=== PATIENT | male | born 1935 | race Caucasian/White ===

== ENCOUNTER 2018-06-16 11:00 | Observation (INO) | payer OTHER, BC ==
--- NOTE | 2018-06-16 11:15 | PDOC ---
Attending Attestation - Resident Resident Name: Kali Edwards - ED Attending Attestation I have performed the following: I have examined & evaluated the patient, The case was reviewed & discussed with the resident, I agree w/resident's findings & plan, Exceptions are as noted - HPI HPI: 06/16/18 11:16 82y M hx of htn, hl, aaa (being monitored) presents to the ED for unwitnessed fall from 2 days ago while working in the garden. The patient states he was feeling well prior, was cleaning his yard and felt 'darkening vision' then fell. He does not remember actually falling but states a bird bath had fallen over but does not recall hitting it. He was able to ambulate into the house and call his . Pt denies any prior headache, dizziness, palpitations, chest pain, sob, abd pain, back pain, neck pain, nubmness/tingling/weakness, vision changes, diarrhea, melena, bpr, fever/chills, cough. Pt doesnt recall if he had any LOC. PMD: Dr. Warren - Physicial Exam PE: 06/16/18 12:11 GENERAL: The patient is awake, alert, and fully oriented, Nontoxic - in no acute distress. HEAD: Normocephalic, atraumatic. EYES: extraocular movements intact, sclera anicteric, conjunctiva clear. ENT: Normal voice, Moist mucous membranes. NECK: Normal range of motion, supple LUNGS: Breath sounds equal, clear to auscultation bilaterally. No wheezes, no rhonchi, no rales. HEART: Regular rate and rhythm, normal S1 and S2 without murmur, rub or gallop. ABDOMEN: Soft, nontender No guarding, no rebound. . No CVA tenderness EXTREMITIES: Normal range of motion, no edema. NEUROLOGICAL: No facial assymetry, Normal speech, PSYCH: Normal mood, normal affect. SKIN: Warm, Dry, normal turgor, Back: No midline tenderness to the cervical, thoracic or lumbar spine Musculoskelatal: FROM of b/l shoulders, elbows, wrist. FROM of hips, knees, ankles - No signs of ecchymosis, erythema, or crepitus noted on palpation extremities, clavicals, ribs, back. On the R chets wall there is ecchynmosis and mild tenderness to right anterior chest approx level of 4th rib. - Medical Decision Making 06/16/18 12:58 concern for possibly syncope due to pt not recalling the fall labs reviewed - no signs of anemia,metabolic dernagemnt cxr/ct head/cspine negative for acute process pt currently on cardiac monitoring will dw hosptialist regarding observation Heart Score/ECG Review - ECG Impressions Comment:: 06/16/18 12:50 Twelve-lead EKG was performed and reviewed by me. There is normal sinus rhythm with a normal rate. rate of [address] wave changes
[2018-06-16 12:04] LABS: BASO % 0.5 % (0-2.0); EOS % 0.5 % (0-4.5); HEMATOCRIT 45.3 % (35.4-49); HEMOGLOBIN 14.9 GM/dl (11.7-16.9); LYMPH % 30.5 % (8-40); MCH 30.8 pg (25.7-33.7); MEAN CELL VOLUME 93.2 fl (80-96); MEAN PLT VOLUME 7.8 fl (7.5-11.1); MONO % 12.2 % (3.8-10.2); NEUT % 56.3 % (42.8-82.8); PLATELET COUNT 173 K/MM3 (134-434); RBC 4.85 M/mm3 (4.00-5.60); RDW 13.8 % (11.9-15.9); WHITE BLOOD COUNT 7.5 K/mm3 (4.0-10.8)
[2018-06-16 12:11] LABS: ACTIVATED PTT 28.1 SECONDS (25.2-36.5)
[2018-06-16 12:13] LABS: ALBUMIN 3.7 g/dl (3.4-5.0); ALK PHOS 38 U/L (45-117); ANION GAP 8 MMOL/L (8-16); BILIRUBIN,TOTAL 0.6 mg/dl (0.2-1); BLOOD UREA NITROGEN 13 mg/dl (7-18); CALCIUM 8.9 mg/dl (8.5-10); CHLORIDE 105 mmol/L (98-107); CO2 27 mmol/L (21-32); CREATININE 0.8 mg/dl (0.55-1.3); GLUCOSE,RANDOM 80 mg/dl (74-106); POTASSIUM 4.1 mmol/L (3.5-5.1); SGOT/AST 22 U/L (15-37); SGPT/ALT 16 U/L (13-61); SODIUM 140 mmol/L (136-145); TOT PROT 6.2 g/dl (6.4-8.2)
[2018-06-16 12:16] LABS: INR 1.06 (0.82-1.09); PROTHROMBIN TIME (PATIENT) 11.9 SEC (10.2-13.0)
--- NOTE | 2018-06-16 12:56 | PDOC ---
History of Present Illness <Cristian Alejandre - Last Filed: 06/16/18 13:33> - General History Source: Patient Exam Limitations: No Limitations - History of Present Illness Initial Comments: 06/16/18 12:52 82 yo male pmh HTN, HLD, AAA (stable 3.5 cm, last CT 1 year ago) No AC, presents to ED for unwitnessed fall. Pt states 23 days ago while working in the garden he noted darkened vision and found himself on the ground. Unknown time lapse in between fall and regaining consciousness. Pt was able to ambulate unassisted into his home and call his . Pt unsure if he hit his head, denies CP, palpitations or SOB prior to and after fall, denies BOO, changes in vision/speech, N/V/F/C, weakness on1 side of his body, confusion or changes in behaviour. Denies abdominal pain, blood in stool or urine, changes in bowel or bladder habits. Pt admits to pain on right ribs from 3-5 anterior axillary line to the sternum with bruising to area. <Kali Edwards - Last Filed: 06/16/18 15:19> - General Chief Complaint: Injury Stated Complaint: FELL Time Seen by Provider: 06/16/18 11:09 Past History <Cristian Alejandre - Last Filed: 06/16/18 13:33> - Past Medical History Cancer: Yes (BLADDER TUMORS) Cardiac Disorders: Yes (STABLE AAA) COPD: No GI Disorders: Yes (DIVERTICULOSIS) Disorders: Yes (RENAL CYSTS, ENLARGED PROSTATE) HTN: Yes Hypercholesterolemia: Yes Other medical history: RIGHT DELTOID CYST - Surgical History GI Surgery: Yes (POLYPECTOMIES) - Immunization History Immunization Up to Date: No - Suicide/Smoking/Psychosocial Hx Smoking History: Current every day smoker Have you smoked in the past 12 months: Yes Number of Cigarettes Smoked Daily: 7 Information on smoking cessation initiated: Yes 'Breaking Loose' booklet given: 06/23/15 Hx Alcohol Use: Yes Drug/Substance Use Hx: No Substance Use Type: None <Kali Edwards - Last Filed: 06/16/18 15:19> - Past Medical History Allergies/Adverse Reactions: Allergies Allergy/AdvReac Type Severity Reaction Status Date / Time No Known Allergies Allergy Verified 06/16/18 11:25 Home Medications: Ambulatory Orders Pravastatin Sodium [Pravachol (Nf)] 20 mg PO HS 06/23/15 Amlodipine Besylate [Norvasc -] 5 mg PO DAILY 06/16/18 Review of Systems - Review of Systems Constitutional: No: Chills, Fever HEENTM: No: Eye Pain, Blurred Vision, Double Vision Respiratory: No: Cough, Shortness of Breath Cardiac (ROS): Yes: Syncope, Other (right sided rib pain with bruising). No: Chest Pain, Lightheadedness, Palpitations ABD/GI: No: Abdominal Distended, Blood Streaked Bowels, Constipated, Diarrhea, Nausea, Vomiting, Tarry Stools : No: Burning, Dysuria, Discharge, Frequency, Flank Pain, Hematuria, Incontinence Musculoskeletal: No: Back Pain, Muscle Weakness, Neck Pain Integumentary: Yes: Bruising Neurological: No: Headache, Numbness, Paresthesia, Tingling, Tremors, Weakness, Unsteady Gait <Kali Edwards - Last Filed: 06/16/18 15:19> *Physical Exam - Vital Signs Last Vital Signs Temp Pulse Resp BP Pulse Ox 98.0 F 79 17 146/76 96 06/16/18 11:04 06/16/18 12:33 06/16/18 12:33 06/16/18 12:33 06/16/18 11:30 <Cristian Alejandre - Last Filed: 06/16/18 13:33> - Vital Signs Last Vital Signs Temp Pulse Resp BP Pulse Ox 98.0 F 79 17 146/76 96 06/16/18 11:04 06/16/18 12:33 06/16/18 12:33 06/16/18 12:33 06/16/18 11:30 - Physical Exam General Appearance: Yes: Nourished, Appropriately Dressed. No: Apparent Distress HEENT: positive: EOMI, GIRMA, Normal Voice, TMs Normal, Hearing Grossly Normal. negative: Pale Conjunctivae, Photophobia Neck: positive: Supple. negative: Tender, Decreased range of motion, Tender lateral Respiratory/Chest: positive: Lungs Clear, Normal Breath Sounds. negative: Accessory Muscle Use, Crackles, Rales, Rhonchi, Stridor, Wheezing Cardiovascular: positive: Regular Rhythm, Regular Rate, S1, S2. negative: Edema , JVD, Murmur Vascular Pulses: Dorsalis-Pedis (R): 4+, Doralis-Pedis (L): 4+ Gastrointestinal/Abdominal: positive: Flat, Soft. negative: Pulsatile Mass, Distended, Guarding, Rebound, Tenderness Musculoskeletal: positive: Normal Inspection. negative: CVA Tenderness Extremity: positive: Normal Capillary Refill, Normal Inspection, Normal Range of Motion, Other (abrasion to right dorsum hand and wrist). negative: Calf Tenderness Integumentary: positive: Bruising (from right ant ax line to right lateral sternum of ribs 3-5 ) Neurologic: positive: driver trainer II-XII NML intact, Fully Oriented, Alert, Normal Mood/ Affect, Normal Response, Motor Strength 5/5, Other (no pronator drift. ). negative: Facial Droop, Numbness, Sensory Deficit, Finger to Nose (normal), Confused, Disoriented <Kali Edwards - Last Filed: 06/16/18 15:19> ED Treatment Course - LABORATORY CBC & Chemistry Diagram: 06/16/18 11:45 06/16/18 11:45 - ADDITIONAL ORDERS Additional order review: Laboratory Results 06/16/18 06/16/18 06/16/18 11:45 11:45 11:45 PT with INR INR PTT (Actin FS) Sodium 140 Potassium 4.1 Chloride 105 Carbon Dioxide 27 Anion Gap 8 BUN 13 Creatinine 0.8 Creat Clearance w eGFR 92.32 Random Glucose 80 Calcium 8.9 Total Bilirubin 0.6 AST 22 ALT 16 Alkaline Phosphatase 38 L Creatine Kinase 100 Troponin I < 0.03 Total Protein 6.2 L Albumin 3.7 06/16/18 11:45 PT with INR 11.9 INR 1.06 PTT (Actin FS) 28.1 Sodium Potassium Chloride Carbon Dioxide Anion Gap BUN Creatinine Creat Clearance w eGFR Random Glucose Calcium Total Bilirubin AST ALT Alkaline Phosphatase Creatine Kinase Troponin I Total Protein Albumin 06/16/18 11:45 RBC 4.85 MCV 93.2 MCHC 33.0 RDW 13.8 MPV 7.8 Neutrophils % 56.3 Lymphocytes % 30.5 Monocytes % 12.2 H Eosinophils % 0.5 Basophils % 0.5 - RADIOLOGY Radiology Studies Ordered: Category Date Time Status WRIST W/HAND-RIGHT* [RAD] Stat Radiology 06/16/18 11:31 Taken <Cristian Alejandre - Last Filed: 06/16/18 13:33> - LABORATORY CBC & Chemistry Diagram: 06/16/18 11:45 06/16/18 11:45 - ADDITIONAL ORDERS Additional order review: Laboratory Results 06/16/18 06/16/18 06/16/18 11:45 11:45 11:45 PT with INR INR PTT (Actin FS) Sodium 140 Potassium 4.1 Chloride 105 Carbon Dioxide 27 Anion Gap 8 BUN 13 Creatinine 0.8 Creat Clearance w eGFR 92.32 Random Glucose 80 Calcium 8.9 Total Bilirubin 0.6 AST 22 ALT 16 Alkaline Phosphatase 38 L Creatine Kinase 100 Troponin I < 0.03 Total Protein 6.2 L Albumin 3.7 06/16/18 11:45 PT with INR 11.9 INR 1.06 PTT (Actin FS) 28.1 Sodium Potassium Chloride Carbon Dioxide Anion Gap BUN Creatinine Creat Clearance w eGFR Random Glucose Calcium Total Bilirubin AST ALT Alkaline Phosphatase Creatine Kinase Troponin I Total Protein Albumin 06/16/18 11:45 RBC 4.85 MCV 93.2 MCHC 33.0 RDW 13.8 MPV 7.8 Neutrophils % 56.3 Lymphocytes % 30.5 Monocytes % 12.2 H Eosinophils % 0.5 Basophils % 0.5 - RADIOLOGY Radiology Studies Ordered: Category Date Time Status CERVICAL SPINE CT W/O CONTR [CT] Stat CT Scan 06/16/18 11:[address] WITHOUT CONTRAST [CT] Stat CT Scan 06/16/18 11:25 Completed CHEST PA & LAT [RAD] Stat Radiology 06/16/18 11:24 Completed RIBS RIGHT SIDE [RAD] Stat Radiology 06/16/18 11:24 Completed <Kali Edwards - Last Filed: 06/16/18 15:19> Medical Decision Making - Medical Decision Making 82 yo male presents to ED with likely syncopal episode 2 days ago. Denies CP, palpitations, SOB or focal neuro deficits. Pt had similar episode approx 1 year ago, believes pt was seen at [facility] but no charts found. States pt had cardiac workup with echo approx 1 month ago reported as normal. Does not have Grain Handler however EKG NSR without ST elevations or depressions DDX INLT: Syncope and collapse from cardiac cause (arrhythmia vs ACS) vs neuro ( stroke vs seizure vs toxic/metabolic) vs infectious etiology Head and C spine CT neg for acute changes Chest x ray and rib series neg for acute path, fractures, pneumo Pt resting comfortably, NAD, non toxic appearing 06/16/18 13:[address] Sanchez who agrees to have pt admitted for syncope and collapse. Dr. Alejandre spoke with ESOL TEACHER Shukri regarding admission. Pt accepted <Kali Edwards - Last Filed: 06/16/18 15:19> *DC/Admit/Observation/Transfer - Discharge Dispostion Decision to Admit order: Yes <Cristian Alejandre - Last Filed: 06/16/18 13:33> <Kali Edwards - Last Filed: 06/16/18 15:19> Diagnosis at time of Disposition: Syncope Qualifiers: Syncope type: unspecified Qualified Code(s): R55 - Syncope and collapse Chest wall contusion Qualifiers: Encounter type: initial encounter Laterality: right Qualified Code(s): S20.211A - Contusion of right front wall of thorax, initial encounter - Discharge Dispostion Condition at time of disposition: Stable
--- NOTE | 2018-06-16 13:29 | HP ---
CHIEF COMPLAINT: Syncope PCP: Dr. Sanchez HISTORY OF PRESENT ILLNESS: 82 year-old male with a PMH significant for HTN, HLD, AAA, bladder cancer, presented to the ED today for an unwitnessed fall 2 days ago while working in his garden. His vision went "dark" and he found himself on the ground. He does not know if he hit anything but the bird feeder was knocked over. He was able to ambulate into his house and called his . He did not seek medical attention. Today he experienced worsening upper right rib pain and bruising so he came to the ED. ER course was notable for: (1) Troponin neg x 1 (2) ECG: SR; no acute ischemic changes (3) CT head negative for acute process Recent Travel: No PAST MEDICAL HISTORY: Hypertension Hyperlipidemia AAA (3.4cm, last CT one year ago) Bladder cancer PAST SURGICAL HISTORY: None Social History: Smoking: current everyday Alcohol: no Drugs: no Family History: Allergies No Known Allergies Allergy (Verified 06/16/18 11:25) HOME MEDICATIONS: Home Medications Medication Instructions Recorded Pravastatin Sodium [Pravachol (Nf)] 20 mg PO HS 06/23/15 Amlodipine Besylate [Norvasc -] 5 mg PO DAILY 06/16/18 REVIEW OF SYSTEMS CONSTITUTIONAL: Absent: fever, chills, diaphoresis, generalized weakness, malaise, loss of appetite, weight change HEENT: Absent: rhinorrhea, nasal congestion, throat pain, throat swelling, difficulty swallowing, mouth swelling, ear pain, eye pain, visual changes CARDIOVASCULAR: Absent: chest pain, syncope, palpitations, irregular heart rate, lightheadedness , peripheral edema RESPIRATORY: Absent: cough, shortness of breath, dyspnea with exertion, orthopnea, wheezing, stridor, hemoptysis GASTROINTESTINAL: Absent: abdominal pain, abdominal distension, nausea, vomiting, diarrhea, constipation, melena, hematochezia GENITOURINARY: Absent: dysuria, frequency, urgency, hesitancy, hematuria, flank pain, genital pain MUSCULOSKELETAL: Absent: myalgia, arthralgia, joint swelling, back pain, neck pain SKIN: Absent: rash, itching, pallor HEMATOLOGIC/IMMUNOLOGIC: Absent: easy bleeding, easy bruising, lymphadenopathy, frequent infections ENDOCRINE: Absent: unexplained weight gain, unexplained weight loss, heat intolerance, cold intolerance NEUROLOGIC: +syncope x 2 days ago Absent: headache, focal weakness or paresthesias, dizziness, unsteady gait, seizure, mental status changes, bladder or bowel incontinence PSYCHIATRIC: Absent: anxiety, depression, suicidal or homicidal ideation, hallucinations. PHYSICAL EXAMINATION Vital Signs - 24 hr 06/16/18 06/16/18 06/16/18 11:04 11:30 12:33 Temperature 98.0 F Pulse Rate 70 Pulse Rate [ 67 79 Apical] Respiratory 22 H 20 17 Rate Blood Pressure 148/77 Blood Pressure 130/74 [Left Arm] Blood Pressure 146/76 [Right Arm] O2 Sat by Pulse 96 96 Oximetry (%) GENERAL: Awake, alert, and fully oriented, in no acute distress. LUNGS: Mild diffuse wheezing and scattered rhonchi HEART: Regular rate and rhythm, normal S1 and S2; linear area of deep ecchymosis upper right chest extending from midline to axilla, +tender ABDOMEN: Soft, nontender, not distended MUSCULOSKELETAL: Normal range of motion at all joints. No bony deformities or tenderness. No CVA tenderness. UPPER EXTREMITIES: 2+ pulses, warm, well-perfused. No cyanosis. No clubbing. No peripheral edema. LOWER EXTREMITIES: 2+ pulses, warm, well-perfused. No calf tenderness. No peripheral edema. NEUROLOGICAL: Cranial nerves II-XII intact. Normal speech. Laboratory Results - last 24 hr 06/16/18 06/16/18 06/16/18 11:45 11:45 11:45 WBC 7.5 RBC 4.85 Hgb 14.9 Hct 45.3 MCV 93.2 MCH 30.8 MCHC 33.0 RDW 13.8 Plt Count 173 MPV 7.8 Absolute Neuts (auto) 4.3 Neutrophils % 56.3 Lymphocytes % 30.5 Monocytes % 12.2 H Eosinophils % 0.5 Basophils % 0.5 PT with INR 11.9 INR 1.06 PTT (Actin FS) 28.1 Sodium 140 Potassium 4.1 Chloride 105 Carbon Dioxide 27 Anion Gap 8 BUN 13 Creatinine 0.8 Creat Clearance w eGFR 92.32 Random Glucose 80 Calcium 8.9 Total Bilirubin 0.6 AST 22 ALT 16 Alkaline Phosphatase 38 L Creatine Kinase Troponin I Total Protein 6.2 L Albumin 3.7 06/16/18 06/16/18 11:45 11:45 WBC RBC Hgb Hct MCV MCH MCHC RDW Plt Count MPV Absolute Neuts (auto) Neutrophils % Lymphocytes % Monocytes % Eosinophils % Basophils % PT with INR INR PTT (Actin FS) Sodium Potassium Chloride Carbon Dioxide Anion Gap BUN Creatinine Creat Clearance w eGFR Random Glucose Calcium Total Bilirubin AST ALT Alkaline Phosphatase Creatine Kinase 100 Troponin I < 0.03 Total Protein Albumin 06/16 CXR: unremarkable 06/16 Xray right ribs: no fracture or dislocation 06/16 CT c-spine: multilevel DDD; C5-6 bilateral hypertrophy likely impinging right C6 nerve root 06/16 CT head: no acute process 06/16 Xray right wrist: unremarkable 06/16 US carotids: done, pending dictation 06/16 Echo: LV systolic normal, impaired LV relaxation; RV normal; trace MR; mild TR; mild PI ASSESSMENT/PLAN: 82 year-old male with a PMH significant for HTN, HLD, AAA, bladder cancer, placed on observation for a syncopal episode that occurred two days ago. Current everyday smoker. Syncope --occurred while working in the garden on a very warm, humid day; not sure if he skipped breakfast --first troponin neg, two pending --ECG: SR; no acute ischemic changes --CXR: unremarkable --06/16 Echo: LV systolic normal, impaired LV relaxation; RV normal; trace MR; mild TR; mild PI --telemetry monitoring --CT head unremarkable --US carotids done pending dictation --cardiology consult --neuro consult; MRI ordered --start low dose ASA, continue statin AAA --being followed by Dr. Sanchez; last CT 1 year ago, 3.4cm --BP control Hypertension --BP stable --continue amlodipine Hyperlipidemia --continue statin Bladder cancer --confirmed diagnosis with Dr. Bowman's office; patient gets cystoscopy every 3 months Wheezing --diffuse mild expiratory wheezing and scattered rhonchi --denies fever, sweats, chills, cough, recent illness --CXR is clear, no congestive changes --is a current every day smoker; is not on respiratory meds/inhalers at home ; satting 99% room air --duonebs PRN FEN Fluids: PO intake adequate Electrolytes: replete as indicated Nutrition: low sodium DVT prophylaxis: subq heparin Physical therapy Dispo: continues to require observation. Full code. Visit type - Emergency Visit Emergency Visit: Yes ED Registration Date: 06/16/18 Care time: The patient presented to the Emergency Department on the above date and was hospitalized for further evaluation of their emergent condition. - New Patient This patient is new to me today: Yes Date on this admission: 06/16/18 - Critical Care Critical Care patient: No
--- NOTE | 2018-06-16 15:43 | ECHO ---
Name: WAI WALKER Exam:Adult Echocardiogram Study Date: 06/16/2018 02:54 PM Age: 82 yrs Reason For Study: SYNCOPE Height: 68 in Weight: 176 lb BSA: 1.9 m2 MMode/2D Measurements & Calculations IVSd: 1.2 cm Ao root diam: 3.2 cm LVIDd: 3.9 cm LA dimension: 2.8 cm LVIDs: 2.5 cm LVPWd: 1.2 cm EDV(Teich): 63.9 ml LVOT diam: 2.0 cm ESV(Teich): 21.9 ml Doppler Measurements & Calculations MV E max celestine: 54.8 cm/sec MV A max celestine: 84.9 cm/sec MV dec slope: 333.3 cm/sec2 MV E/A: 0.65 Ao V2 max: 190.5 cm/sec LV V1 max P.4 mmHg Ao max P.5 mmHg LV V1 max: 104.4 cm/sec PENNY(V,D): 1.7 cm2 TR max celestine: 205.0 cm/sec PA V2 max: 95.5 cm/sec TR max P.0 mmHg PA max P.6 mmHg PI end-d celestine: 95.5 cm/sec Left Ventricle Left ventricular systolic function is normal. Ejection Fraction = 55-60%. The transmitral spectral Do ppler flow pattern is suggestive of impaired LV relaxation. Septal motion is consistent with conduction abn ormality. Right Ventricle The right ventricle is normal in size and function. Atria Normal left and right atrial size and function. Mitral Valve There is mild mitral valve thickening. There is no mitral valve stenosis. There is trace mitral regur gitation. Tricuspid Valve The tricuspid valve is normal in structure and function. There is mild tricuspid regurgitation. Aortic Valve There is mild aortic sclerosis.;. No hemodynamically significant valvular aortic stenosis. No aortic regurgitation is present. Pulmonic Valve The pulmonic valve is not well seen, but is grossly normal. There is no pulmonic valvular stenosis. M ild pulmonic valvular regurgitation. Great Vessels The aortic root is normal size. Pericardium/Pleura There is no pericardial effusion. Interpretation Summary Septal motion is consistent with conduction abnormality. Left ventricular systolic function is normal. Ejection Fraction = 55-60%. The transmitral spectral Doppler flow pattern is suggestive of impaired LV relaxation. The right ventricle is normal in size and function. There is mild mitral valve thickening. There is trace mitral regurgitation. There is mild tricuspid regurgitation. There is mild aortic sclerosis.; There is no pericardial effusion. MD Nava *Trevor 06/16/2018 03:42 PM
[2018-06-16] MEDS ORDERED: ALBUTEROL SO4 2.5/IPRATROPIUM 0.5 INH SOL 3 ML VIAL.NEB. NEB PRN (15:57)
--- NOTE | 2018-06-16 17:05 | CON.CARD ---
Cardiology Consult (text) - Consultation Consultation Note: cc: syncope hpi: 82 m hx aaa, htn, hld here s/p syncope. 3 days ago was outside gardening , felt well, was bending over near bird bath and next he remembers being on ground with birdbath knocked over. Does not recall if he had loc. No prodrome sxs. No prior episodes. Feels well now. No cp sob palps dizzy pnd orthopnea le edema. No hx hrt dz. pmh: per hpi psh: no surgery social: +tob hx fam: no premature cad, scd ros: per hpi; some msk pain s/p fall; all others normal meds: Home Medications Medication Instructions Recorded Pravastatin Sodium [Pravachol (Nf)] 20 mg PO HS 06/23/15 Amlodipine Besylate [Norvasc -] 5 mg PO DAILY 06/16/18 pe: Vital Signs Period Temp Pulse Resp BP Sys/Vick Pulse Ox Last 24 Hr 98.0 F-98.7 F 67-79 17-22 130-154/66-77 96-99 nad no jvd rrr s1s2 no mrg cta bl nl eff aaox3 no le e/c/c abd nt nd pos bs no jaundice diaphoresis pos dp pt no carotid bruits Laboratory Last Values WBC 7.5 K/mm3 (4.0-10.8) 06/16/18 11:45 RBC 4.85 M/mm3 (4.00-5.60) 06/16/18 11:45 Hgb 14.9 GM/dl (11.7-16.9) 06/16/18 11:45 Hct 45.3 % (35.4-49) 06/16/18 11:45 MCV 93.2 fl (80-96) 06/16/18 11:45 MCH 30.8 pg (25.7-33.7) 06/16/18 11:45 MCHC 33.0 g/dl (32.0-35.9) 06/16/18 11:45 RDW 13.8 % (11.9-15.9) 06/16/18 11:45 Plt Count 173 K/MM3 (134-434) 06/16/18 11:45 MPV 7.8 fl (7.5-11.1) 06/16/18 11:45 Absolute Neuts (auto) 4.3 K/mm3 06/16/18 11:45 Neutrophils % 56.3 % (42.8-82.8) 06/16/18 11:45 Lymphocytes % 30.5 % (8-40) 06/16/18 11:45 Monocytes % 12.2 % (3.8-10.2) H 06/16/18 11:45 Eosinophils % 0.5 % (0-4.5) 06/16/18 11:45 Basophils % 0.5 % (0-2.0) 06/16/18 11:45 PT with INR 11.9 SEC (10.2-13.0) 06/16/18 11:45 INR 1.06 (0.82-1.09) 06/16/18 11:45 PTT (Actin FS) 28.1 SECONDS (25.2-36.5) 06/16/18 11:45 Sodium 140 mmol/L (136-145) 06/16/18 11:45 Potassium 4.1 mmol/L (3.5-5.1) 06/16/18 11:45 Chloride 105 mmol/L (98-107) 06/16/18 11:45 Carbon Dioxide 27 mmol/L (21-32) 06/16/18 11:45 Anion Gap 8 MMOL/L (8-16) 06/16/18 11:45 BUN 13 mg/dl (7-18) 06/16/18 11:45 Creatinine 0.8 mg/dl (0.55-1.3) 06/16/18 11:45 Creat Clearance w eGFR 92.32 (>60) 06/16/18 11:45 Random Glucose 80 mg/dl (74-106) 06/16/18 11:45 Calcium 8.9 mg/dl (8.5-10) 06/16/18 11:45 Total Bilirubin 0.6 mg/dl (0.2-1) 06/16/18 11:45 AST 22 U/L (15-37) 06/16/18 11:45 ALT 16 U/L (13-61) 06/16/18 11:45 Alkaline Phosphatase 38 U/L (45-117) L 06/16/18 11:45 Creatine Kinase 100 U/L (26-308) 06/16/18 11:45 Troponin I < 0.03 ng/ml (0.00-0.05) 06/16/18 11:45 Total Protein 6.2 g/dl (6.4-8.2) L 06/16/18 11:45 Albumin 3.7 g/dl (3.4-5.0) 06/16/18 11:45 Urine Color Yellow 06/16/18 13:50 Urine Appearance Clear 06/16/18 13:50 Urine pH 6.0 (4.5-8) 06/16/18 13:50 Urine Protein Negative (NEGATIVE) 06/16/18 13:50 Urine Glucose (UA) Negative (NEGATIVE) 06/16/18 13:50 Urine Ketones Trace (NEGATIVE) 06/16/18 13:50 Urine Blood Negative (NEGATIVE) 06/16/18 13:50 Urine Nitrite Negative (NEGATIVE) 06/16/18 13:50 Urine Bilirubin Negative (NEGATIVE) 06/16/18 13:50 Urine Urobilinogen 0.2 (0.2-1.0) 06/16/18 13:50 Ur Leukocyte Esterase Negative (NEGATIVE) 06/16/18 13:50 tele: sr/sb, no bradyarrhythmias echo 06/2018: nl lv/rv, mild mr carotids 06/2018: no sig stenosis cxr: clear lungs ecg: sr, nl intervals, irbbb a/p: 82 m hx aaa, htn, hld here s/p syncope. syncope: -unwitnessed event, may have been fall w/o syncope, pt unclear of details -no signs acs, arrhythmia, chf -echo, ecg, and carotids benign -tele unremarkable so far -neuro eval pending -check ortho vitals, finish dru -cardiac james if above unremarkable and tele benign overnight then would be ok for dc tomorrow. could consider outpt event monitor if sxs recur. htn: -stable here on norvasc hld: -cont statin aaa: -bp control, outpt monitoring
[2018-06-16 17:17] VITALS: BMI 27.3
[2018-06-16] MEDS: ASPIRIN COATED 81 MG TABLET.EC PO SCH (17:22)
[2018-06-16] MEDS: HEPARIN NA (PORCINE) 5,000 UNITS/ML 1ML VIAL SQ SCH (17:22)
--- NOTE | 2018-06-16 18:25 | CON.NEURO ---
Consult - Alcohol/Substance Use Hx Alcohol Use: Yes (social) - Smoking History Smoking history: Current every day smoker Have you smoked in the past 12 months: Yes Aproximately how many cigarettes per day: 8 Home Medications - Allergies Allergies/Adverse Reactions: Allergies Allergy/AdvReac Type Severity Reaction Status Date / Time No Known Allergies Allergy Verified 06/16/18 11:25 - Home Medications Home Medications: Ambulatory Orders Pravastatin Sodium [Pravachol (Nf)] 20 mg PO HS 06/23/15 Amlodipine Besylate [Norvasc -] 5 mg PO DAILY 06/16/18 Physical Exam-Neuro Vital Signs: Vital Signs Temperature 98.7 F 06/16/18 16:54 Pulse Rate 71 06/16/18 16:54 Respiratory Rate 18 06/16/18 16:54 Blood Pressure 154/68 06/16/18 16:54 O2 Sat by Pulse Oximetry (%) 99 06/16/18 16:54 Labs: CBC, BMP 06/16/18 11:45 06/16/18 11:45 INR, PTT INR 1.06 (0.82-1.09) 06/16/18 11:45 Assessment/Plan cc Episode of syncope HPI 82 year old male history of HTN, HLD , Bladder cancer and AAA . Patient had brief LOC and fall. There is no tonic clonic activity, no headhace, no weakness or numbness, no tongue bite or incontinence. Patient is back to normal self, ct head and carotid ultrasound is normal PMH Hypertension Hyperlipidemia AAA (3.4cm, last CT one year ago) Bladder cancer PAST SURGICAL HISTORY: None Social History: Smoking: current everyday Alcohol: no Drugs: no Family History: Allergies No Known Allergies Allergy (Verified 06/16/18 11:25) HOME MEDICATIONS: Home Medications Medication Instructions Recorded Pravastatin Sodium [Pravachol (Nf)] 20 mg PO HS 06/23/15 Amlodipine Besylate [Norvasc -] 5 mg PO DAILY 06/16/18 NEUROLOGICAL EXAMINATION Alert oriented x 2, he knows it is 2019 and june speech is normal, nad no neck stiffness CN all intact , eomi, pupils reactive moving all ext sensation is normal ct head and carotid ultrasound Assessment/Plan Vasovagal syncope, unlikely to be seizure and stroke. work up negative Plan: no further recommendation from neuro point of view THnaking you so much Leland Mckinnon MD
[2018-06-16] MEDS ORDERED: PATIENT'S OWN MEDICATION (NON-FORMULARY) (Pravastatin Sodium 20 MG) PO SCH (22:00)
[2018-06-16] MEDS ORDERED: ATORVASTATIN CA 10 MG TABLET (FP) PO SCH (22:00)
[2018-06-17] MEDS: HEPARIN NA (PORCINE) 5,000 UNITS/ML 1ML VIAL SQ SCH ×2 (02:25→09:12)
[2018-06-17 05:59] VITALS: BP 125/60; PULSE 70; TEMP 97.6
--- NOTE | 2018-06-17 08:25 | EKG ---
Test Reason : Blood Pressure : / mmHG Vent. Rate : 063 BPM Atrial Rate : 063 BPM P-R Int : 142 ms QRS Dur : 102 ms QT Int : 404 ms P-R-T Axes : 088 -59 -31 degrees QTc Int : 413 ms NORMAL SINUS RHYTHM LEFT AXIS DEVIATION INCOMPLETE RIGHT BUNDLE BRANCH BLOCK MODERATE VOLTAGE CRITERIA FOR LVH, MAY BE NORMAL VARIANT NONSPECIFIC ST ABNORMALITY ABNORMAL ECG WHEN COMPARED WITH ECG OF 11-DEC-2009 13:14, INCOMPLETE RIGHT BUNDLE BRANCH BLOCK IS NOW PRESENT Confirmed by LUIS PEREZ, MICHELLE ([id number]) on 06/17/2018 8:25:14 AM Referred By: ERIKA Confirmed By:MICHELLE SMITH MD
[2018-06-17 08:32] LABS: BASO % 0.9 % (0-2.0); EOS % 1.1 % (0-4.5); HEMOGLOBIN 14.9 GM/dl (11.7-16.9); LYMPH % 34.9 % (8-40); MCH 30.4 pg (25.7-33.7); MCHC 33.1 g/dl (32.0-35.9); MEAN CELL VOLUME 91.9 fl (80-96); MEAN PLT VOLUME 7.9 fl (7.5-11.1); MONO % 11.2 % (3.8-10.2); NEUT % 51.9 % (42.8-82.8); PLATELET COUNT 170 K/MM3 (134-434); RBC 4.89 M/mm3 (4.00-5.60); RDW 13.7 % (11.9-15.9); WHITE BLOOD COUNT 5.9 K/mm3 (4.0-10.8)
[2018-06-17 08:47] LABS: ALBUMIN 3.6 g/dl (3.4-5.0); ALK PHOS 38 U/L (45-117); ANION GAP 8 MMOL/L (8-16); BILIRUBIN,TOTAL 0.8 mg/dl (0.2-1); BLOOD UREA NITROGEN 10 mg/dl (7-18); CALCIUM 8.7 mg/dl (8.5-10); CHLORIDE 102 mmol/L (98-107); CO2 26 mmol/L (21-32); CREATININE 0.8 mg/dl (0.55-1.3); GLUCOSE,RANDOM 97 mg/dl (74-106); MAGNESIUM 1.8 mg/dL (1.8-2.4); POTASSIUM 3.5 mmol/L (3.5-5.1); SGOT/AST 21 U/L (15-37); SGPT/ALT 15 U/L (13-61); SODIUM 136 mmol/L (136-145); TOT PROT 5.9 g/dl (6.4-8.2)
[2018-06-17] MEDS: ASPIRIN COATED 81 MG TABLET.EC PO SCH (09:09)
--- NOTE | 2018-06-17 09:59 | DS ---
Physical Exam: SUBJECTIVE: Patient seen and examined, feeling well this morning, denies dizziness, chest pain seen by cardio and neuro. cleared for discharge today. OBJECTIVE: Vital Signs Period Temp Pulse Resp BP Sys/Vick Pulse Ox Last 24 Hr 97.6 F-98.7 F 65-81 17-22 124-154/57-77 95-99 PHYSICAL EXAM GENERAL: The patient is awake, alert, and fully oriented, in no acute distress. HEAD: Normal with no signs of trauma. EYES: PERRL, extraocular movements intact, sclera anicteric, conjunctiva clear. ENT: Ears normal, nares patent, oropharynx clear without exudates, moist mucous membranes. NECK: Trachea midline, full range of motion, supple. LUNGS: Breath sounds equal, clear to auscultation bilaterally, no wheezes, no crackles, no accessory muscle use. HEART: Regular rate and rhythm, S1, S2 without murmur, rub or gallop. ABDOMEN: Soft, nontender, nondistended, normoactive bowel sounds, no guarding, no rebound, no hepatosplenomegaly, no masses. EXTREMITIES: 2+ pulses, warm, well-perfused, no edema. NEUROLOGICAL: Cranial nerves II through XII grossly intact. Normal speech, gait not observed. PSYCH: Normal mood, normal affect. SKIN: Warm, dry, normal turgor, no rashes or lesions noted. LABS Laboratory Results - last 24 hr 06/16/18 06/16/18 06/16/18 11:45 11:45 11:45 WBC 7.5 RBC 4.85 Hgb 14.9 Hct 45.3 MCV 93.2 MCH 30.8 MCHC 33.0 RDW 13.8 Plt Count 173 MPV 7.8 Absolute Neuts (auto) 4.3 Neutrophils % 56.3 Lymphocytes % 30.5 Monocytes % 12.2 H Eosinophils % 0.5 Basophils % 0.5 PT with INR 11.9 INR 1.06 PTT (Actin FS) 28.1 Sodium 140 Potassium 4.1 Chloride 105 Carbon Dioxide 27 Anion Gap 8 BUN 13 Creatinine 0.8 Creat Clearance w eGFR 92.32 Random Glucose 80 Calcium 8.9 Magnesium Total Bilirubin 0.6 AST 22 ALT 16 Alkaline Phosphatase 38 L Creatine Kinase Troponin I Total Protein 6.2 L Albumin 3.7 TSH Urine Color Urine Appearance Urine pH Urine Protein Urine Glucose (UA) Urine Ketones Urine Blood Urine Nitrite Urine Bilirubin Urine Urobilinogen Ur Leukocyte Esterase 06/16/18 06/16/18 06/16/18 11:45 11:45 13:50 WBC RBC Hgb Hct MCV MCH MCHC RDW Plt Count MPV Absolute Neuts (auto) Neutrophils % Lymphocytes % Monocytes % Eosinophils % Basophils % PT with INR INR PTT (Actin FS) Sodium Potassium Chloride Carbon Dioxide Anion Gap BUN Creatinine Creat Clearance w eGFR Random Glucose Calcium Magnesium Total Bilirubin AST ALT Alkaline Phosphatase Creatine Kinase 100 Troponin I < 0.03 Total Protein Albumin TSH Urine Color Yellow Urine Appearance Clear Urine pH 6.0 Urine Protein Negative Urine Glucose (UA) Negative Urine Ketones Trace Urine Blood Negative Urine Nitrite Negative Urine Bilirubin Negative Urine Urobilinogen 0.2 Ur Leukocyte Esterase Negative 06/16/18 06/16/18 06/17/18 18:00 18:00 00:12 WBC RBC Hgb Hct MCV MCH MCHC RDW Plt Count MPV Absolute Neuts (auto) Neutrophils % Lymphocytes % Monocytes % Eosinophils % Basophils % PT with INR INR PTT (Actin FS) Sodium Potassium Chloride Carbon Dioxide Anion Gap BUN Creatinine Creat Clearance w eGFR Random Glucose Calcium Magnesium Total Bilirubin AST ALT Alkaline Phosphatase Creatine Kinase 105 Troponin I < 0.03 < 0.02 Total Protein Albumin TSH 1.12 Urine Color Urine Appearance Urine pH Urine Protein Urine Glucose (UA) Urine Ketones Urine Blood Urine Nitrite Urine Bilirubin Urine Urobilinogen Ur Leukocyte Esterase 06/17/18 06/17/18 07:12 07:12 WBC 5.9 RBC 4.89 Hgb 14.9 Hct 45.0 MCV 91.9 MCH 30.4 MCHC 33.1 RDW 13.7 Plt Count 170 MPV 7.9 Absolute Neuts (auto) 3.0 Neutrophils % 51.9 Lymphocytes % 34.9 Monocytes % 11.2 H Eosinophils % 1.1 D Basophils % 0.9 PT with INR INR PTT (Actin FS) Sodium 136 Potassium 3.5 Chloride 102 Carbon Dioxide 26 Anion Gap 8 BUN 10 Creatinine 0.8 Creat Clearance w eGFR 92.32 Random Glucose 97 Calcium 8.7 Magnesium 1.8 Total Bilirubin 0.8 AST 21 ALT 15 Alkaline Phosphatase 38 L Creatine Kinase Troponin I Total Protein 5.9 L Albumin 3.6 TSH Urine Color Urine Appearance Urine pH Urine Protein Urine Glucose (UA) Urine Ketones Urine Blood Urine Nitrite Urine Bilirubin Urine Urobilinogen Ur Leukocyte Esterase HOSPITAL COURSE: Date of Admission:06/16/18 Date of Discharge: 06/17/18 82 year-old male with a PMH significant for HTN, HLD, AAA, bladder cancer, placed on observation for a syncopal episode that occurred two days ago. Current everyday smoker. Syncope --trop neg x 3 --ECG: SR; no acute ischemic changes --CXR: unremarkable --06/16 Echo: LV systolic normal, impaired LV relaxation; RV normal; trace MR; mild TR; mild PI --telemetry monitoring --CT head unremarkable --US carotids done pending dictation --cardiology note appreciated- no cardiac etiology --neuro note appreciated cleared by neuro. MRI cancelled --start low dose ASA, continue statin AAA --being followed by Dr. Sanchez; last CT 1 year ago, 3.4cm --BP control Hypertension --BP stable --continue amlodipine Hyperlipidemia --continue statin Bladder cancer --confirmed diagnosis with Dr. Bowman's office; patient gets cystoscopy every 3 months Wheezing-improved --diffuse mild expiratory wheezing and scattered rhonchi --denies fever, sweats, chills, cough, recent illness --CXR is clear, no congestive changes --is a current every day smoker; is not on respiratory meds/inhalers at home ; satting 99% room air --duonebs PRN Minutes to complete discharge: 30 Discharge Summary Reason For Visit: SYNCOPE, CONTUSION OF CHEST WALL Current Active Problems Chest wall contusion (Acute) Syncope (Acute) - Instructions Diet, Activity, Other Instructions: Low sodium diet Follow up with PCP in 1 week. Disposition: HOME - Home Medications Comprehensive Discharge Medication List: Ambulatory Orders Pravastatin Sodium [Pravachol -] 20 mg PO HS 06/23/15 Amlodipine Besylate [Norvasc -] 5 mg PO DAILY 06/16/18 This patient is new to me today: Yes Date on this admission: 06/17/18 Emergency Visit: Yes ED Registration Date: 06/16/18 Care time: The patient presented to the Emergency Department on the above date and was hospitalized for further evaluation of their emergent condition. Critical Care patient: No - Discharge Referral Referred to [facility] No
[2018-06-17] MEDS ORDERED: amLODIPine BESYLATE 5 MG TABLET (FP) PO SCH (10:00)
== END 2018-06-17 11:19 | disposition home or self-care (01) ==
LOC: SUPCPDRO 11:00 → FER 11:00 → FM/S 13:33
PROVIDERS: ADMIT Internal Medicine; ATTEND Nurse Practitioner Family
DX: R55 Syncope and collapse (principal); S20.211A Contusion of right front wall of thorax, initial encounter; R06.2 Wheezing; I10 Essential (primary) hypertension; E78.5 Hyperlipidemia, unspecified; I71.4 Abdominal aortic aneurysm, without rupture; N40.0 Benign prostatic hyperplasia without lower urinary tract symptoms; F17.210 Nicotine dependence, cigarettes, uncomplicated; C67.9 Malignant neoplasm of bladder, unspecified; W18.39XA Other fall on same level, initial encounter; Y93.H2 Activity, gardening and landscaping; Y92.007 Garden or yard of unspecified non-institutional (private) residence as the place of occurrence of the external cause
CPT/HCPCS: 36415; 70450-TC; 71046-TC-FY; 71101-TC-RT-FY; 72125-TC; 73110-TC-RT-FY; 73130-TC-RT-FY; 80053; 81003; 82550; 83735; 84443; 84484; 85025; 85610; 85730; 93005; 93306-TC; 93880-TC; 97116-GP; 97161-GP; 99285-25; G0378

== ENCOUNTER 2019-10-23 05:16 | Day surgery (SDC) | payer OTHER, BC ==
[2019-10-03 08:39] VITALS: BMI 23.6
[2019-10-23] MEDS ORDERED: MIDAZOLAM HCL 2 MG/2 ML SINGLE DOSE VIAL ONE (07:18)
[2019-10-23] MEDS ORDERED: PROPOFOL 20 ML ONE (07:18)
[2019-10-23] MEDS ORDERED: LIDOCAINE HCL/PF 2% SDV 5ML VIAL ONE (07:18)
[2019-10-23] MEDS ORDERED: LIDOCAINE HCL 1%, 10 MG/ML (20ML VIAL) ONE (07:22)
--- NOTE | 2019-10-23 08:00 | HP ---
History & Physical Update - History History: No Change - Physical Physical: No Change - Assessment Assessment: No Change - Plan Plan: No Change (for excision sebaceous cyst right upper extremity; r/b/t/a's d/w the patient and informed consent obtained.)
[2019-10-23] MEDS ORDERED: ceFAZolin SODIUM 1 GM VIAL IVPB ONE (08:10)
[2019-10-23] MEDS ORDERED: ceFAZolin SODIUM 1 GM VIAL ONE (08:13)
[2019-10-23] MEDS ORDERED: LIDOCAINE HCL 1%, 10 MG/ML (20ML VIAL) ID ONE (08:30)
[2019-10-23] MEDS ORDERED: BUPIVACAINE HCL/PF 0.5% (5MG/ML) 10 ML VIAL IJ ONE (08:30)
--- NOTE | 2019-10-23 08:59 | OP ---
Operative Note - Note: Operative Date: 10/23/19 Pre-Operative Diagnosis: sebaceous cyst RUE Operation: excision sebaceous cyst RUE Findings: 6.0 cm. sebaceous cyst over right deltoid Post-Operative Diagnosis: Same as Pre-op Surgeon: Javier Hutton Anesthesiologist/CORRECTIONAL FACILITY PSYCHIATRIST: Danielle Crowley Anesthesia: Local, MAC (w/local) Specimens Removed: sebaceous cyst Estimated Blood Loss (mls): 5
[2019-10-23] MEDS ORDERED: oxyCODONE HCL 5 MG TABLET PO PRN (09:06)
[2019-10-23] MEDS ORDERED: ONDANSETRON 4 MG/2 ML VIAL IVPUSH PRN (09:06)
[2019-10-23] MEDS ORDERED: ACETAMINOPHEN 325 MG TABLET (FP) PO PRN (09:06)
[2019-10-23] MEDS ORDERED: LACTATED RINGERS SOLUTION 1,000 ML IV SCH (09:15)
[2019-10-23 10:22] VITALS: TEMP 97
[2019-10-23 13:37] VITALS: BP 120/70; PULSE 60
--- NOTE | 2019-10-24 16:48 | PATH ---
Surgical Pathology Report Patient Name: WAI WALKER Med. Rec. #: [id number] /Age/Gender: 1935 (Age: 83) / M Account: [id number] Location: [facility] Taken: 10/23/2019 Received: 10/23/2019 Reported: 10/24/2019 Physicians: Javier Hutton MD Specimen(s) Received SEBACEOUS CYST RIGHT UPPER ARM Clinical History Sebaceous cyst right upper arm Final Diagnosis SEBACEOUS CYST, UPPER ARM, RIGHT, EXCISION: EPIDERMAL INCLUSION CYST. Electronically Signed Reema Adams M.D. Gross Description Received in formalin labeled "sebaceous cyst right upper arm," is a 2.8 x 2.0 x 1.0 cm focally disrupted cystic structure which is partially surfaced by a 2.2 x 0.6 cm keith, elliptical, unremarkable portion of skin. There is keith sebaceous material within the cyst lumen and separately within the container. Chute Boss sections are submitted in one cassette. 10/23/2019 [facility]10/23/2019
--- NOTE | 2019-10-24 19:38 | OP ---
DATE OF OPERATION: 10/23/2019 PREOPERATIVE DIAGNOSIS: Sebaceous cyst of the right upper extremity. POSTOPERATIVE DIAGNOSIS: Sebaceous cyst of the right upper extremity. PROCEDURE: Excision of sebaceous cyst of the right upper extremity. SURGEON: Javier Hutton MD ANESTHESIA: Local with IV sedation. OPERATIVE FINDINGS: There was an approximately 6-cm sebaceous cyst over the right deltoid. The rest of the findings were unremarkable. DESCRIPTION OF PROCEDURE: The patient on the placed on the operating table in supine position and intravenous sedation administered. The area over the mass was prepped with ChloraPrep and draped in sterile fashion. A timeout was taken, and an elliptical incision encompassing the opening in the skin was mapped out and the area infiltrated with 1% Xylocaine and 0.5% Marcaine in equal concentration. Incision was made with a scalpel and taken down through skin and subcutaneous tissue, and then, using blunt dissection and electrocautery, the mass and overlying skin were excised and sent for pathological examination. Hemostasis was secured with electrocautery and the wound copiously irrigated with sterile saline. Hemostasis was again verified, and the wound was closed in layers with interrupted 3-0 Vicryl for the deep dermis and interrupted 4-0 Prolene horizontal mattress sutures to reapproximate the skin edges. Dry sterile dressings were placed and the procedure terminated at this point and the patient transferred to the postanesthesia care unit in stable condition, awake and alert. ESTIMATED BLOOD LOSS: 5 mL. REPLACEMENTS: Crystalloid. DRAINS: None. SPECIMENS: Sebaceous cyst and overlying skin to Pathology. I, Javier Hutton, was physically present in the operating room from the time the patient was placed on the operating table until he was transferred to the postanesthesia care unit in my accompaniment. MD MOOK Campbell/[id number] MTDD
== END 2019-10-23 11:45 | disposition home or self-care (01) ==
LOC: JASU-SURG 05:16
PROVIDERS: ATTEND Surgery
PROC: 0HBBXZX Excision of Right Upper Arm Skin, External Approach, Diagnostic (ICD-10-PCS; 2019-10-23)
PROC: 0HBBXZX Excision of Right Upper Arm Skin, External Approach, Diagnostic (ICD-10-PCS; principal; 2019-10-23 08:00)
DX: L72.3 Sebaceous cyst (principal)
CPT/HCPCS: 88304-TC

== ENCOUNTER 2022-07-28 12:41 | Observation (INO) | payer OTHER, BC ==
[2022-07-28] MEDS ORDERED: DIPHTH,PERTUSS(ACELL),TET 0.5 ML DISP.SYRIN IM ONE ×2 (13:20→13:43)
[2022-07-28 14:01] LABS: INR 1.03 (0.83-1.09)
[2022-07-28 14:11] LABS: ALBUMIN 4.3 g/dl (3.4-5.0); BILIRUBIN,TOTAL 0.4 mg/dl (0.2-1); BLOOD UREA NITROGEN 15.3 mg/dl (7-18); CALCIUM 9.2 mg/dl (8.5-10.1); POTASSIUM 3.8 mmol/L (3.5-5.1); SGOT/AST 18.2 U/L (15-37); SGPT/ALT 9.9 U/L (7-52); TOT PROT 6.2 g/dl (6.4-8.2)
[2022-07-28 14:13] LABS: HEMATOCRIT 45.9 % (35.4-49); HEMOGLOBIN 15.6 G/dL (11.7-16.9); MCH 31.5 pg (25.7-33.7); MCHC 34.1 g/dl (32.0-35.9); MEAN CELL VOLUME 92.4 fl (80-96); MEAN PLT VOLUME 8.6 fl (7.5-11.1); PLATELET COUNT 145.3 10^3/uL (134-434); RBC 4.97 10^6/uL (4.00-5.60); RDW 14.4 % (11.9-15.9); WHITE BLOOD COUNT 11.6 10^3/uL (4.0-10.8)
[2022-07-28 14:17] LABS: PLATELET ESTIMATE ADEQUATE
[2022-07-28] MEDS ORDERED: DOCUSATE SODIUM 100 MG CAPSULE (FP) PO PRN (19:50)
[2022-07-28] MEDS ORDERED: ACETAMINOPHEN 1000 MG/100 ML BAG IVPB PRN (19:54)
[2022-07-28] MEDS ORDERED: MELATONIN 5 MG TABLETS PO PRN (19:56)
[2022-07-28 20:46] VITALS: BMI 24.7
[2022-07-29 00:11] VITALS: RESP 18
[2022-07-29 05:16] VITALS: BP 130/72; PULSE 81; TEMP 98.4
[2022-07-29 08:17] LABS: CREATININE 0.9 mg/dl (0.6-1.3); MAGNESIUM 1.9 mg/dL (1.8-2.4); PHOSPHOROUS 2.63 (2.5-4.9); POTASSIUM 3.9 mmol/L (3.5-5.1)
[2022-07-29] MEDS ORDERED: amLODIPine BESYLATE 5 MG TABLET (FP) PO SCH (10:00)
[2022-07-29 19:36] LABS: HEMATOCRIT 46.6 % (35.4-49); HEMOGLOBIN 15.6 GM/dL (11.7-16.9); MCH 29.9 pg (25.7-33.7); MCHC 33.4 g/dl (32.0-35.9); MEAN CELL VOLUME 89.7 fl (80-96); MEAN PLT VOLUME 7.8 fl (7.5-11.1); PLATELET COUNT 168 10^3/uL (134-434); RDW 14.5 % (11.9-15.9); WHITE BLOOD COUNT 12.3 K/mm3 (4.0-10.0)
[2022-07-29] MEDS ORDERED: ACETAMINOPHEN 325 MG TABLET (FP) PO PRN (19:50)
[2022-07-29 21:49] LABS: ANISOCYTOSIS 0; MACROCYTOSIS 0
== END 2022-07-29 14:01 | disposition home or self-care (01) ==
LOC: FER 12:41 → FM/S 19:39
PROVIDERS: ADMIT Internal Medicine; ATTEND Internal Medicine
PROC: 3E0234Z Introduction of Serum, Toxoid and Vaccine into Muscle, Percutaneous Approach (ICD-10-PCS; principal; 2022-07-28)
DX: W18.39XA Other fall on same level, initial encounter (principal); Y93.H2 Activity, gardening and landscaping; Y92.096 Garden or yard of other non-institutional residence as the place of occurrence of the external cause; I10 Essential (primary) hypertension; I71.40 Abdominal aortic aneurysm, without rupture, unspecified; E78.5 Hyperlipidemia, unspecified; Z85.51 Personal history of malignant neoplasm of bladder; Z23 Encounter for immunization
CPT/HCPCS: 0241U-QW; 36415; 70450-TC; 71046-TC-FY; 72125-TC; 73521-TC-FY; 80048; 80053; 81003; 81015; 82306; 82607; 82746; 83735; 84100; 84439; 84443; 84479; 84484; 85027; 85610; 87086; 90471; 90715; 93005; 97116-GP; 97162-GP; 99285-25; G0378

== ENCOUNTER 2023-12-01 16:29 | Inpatient (IN) | payer OTHER, BC ==
[2023-12-01 16:48] VITALS: BMI 23.5
[2023-12-01 17:16] LABS: HEMATOCRIT 52.1 % (35.4-49); HEMOGLOBIN 16.4 G/dL (11.7-16.9); MCH 30.2 pg (25.7-33.7); MCHC 31.6 g/dl (32.0-35.9); MEAN CELL VOLUME 95.8 fl (80-96); PLATELET COUNT 157.8 10^3/uL (134-434); RBC 5.44 10^6/uL (4.00-5.60); RDW 14.7 % (11.9-15.9)
[2023-12-01 17:31] LABS: ALBUMIN 4.6 g/dl (3.4-5.0); BILIRUBIN,TOTAL 0.4 mg/dl (0.2-1); CALCIUM 9.8 mg/dl (8.5-10.1); CREATININE 1.1 mg/dl (0.6-1.3); POTASSIUM 3.6 mmol/L (3.5-5.1); TOT PROT 6.4 g/dl (6.4-8.2)
[2023-12-01 18:03] LABS: PLATELET ESTIMATE ADEQUATE
[2023-12-02 08:45] LABS: CALCIUM 9.3 mg/dl (8.5-10.1); CREATININE 1.1 mg/dl (0.6-1.3); MAGNESIUM 1.9 mg/dL (1.8-2.4); PHOSPHOROUS 3.4 (2.5-4.9); POTASSIUM 3.9 mmol/L (3.5-5.1)
[2023-12-02] MEDS: CHOLECALCIFEROL (VIT D3) 1,000 UNIT (25 MCG) TABLET PO SCH (09:39)
[2023-12-02] MEDS: CILOSTAZOL 100 MG TABLET PO SCH (09:39)
[2023-12-02 09:57] LABS: HEMATOCRIT 43.3 % (35.4-49); HEMOGLOBIN 14.8 GM/dL (11.7-16.9); MCH 31.4 pg (25.7-33.7); MCHC 34.1 g/dl (32.0-35.9); MEAN CELL VOLUME 91.9 fl (80-96); PLATELET COUNT 166 10^3/uL (134-434); RBC 4.72 M/mm3 (4.00-5.60); RDW 14.6 % (11.9-15.9); WHITE BLOOD COUNT 19.9 K/mm3 (4.0-10.0)
[2023-12-02 11:10] LABS: ANISOCYTOSIS 0; MACROCYTOSIS 0
[2023-12-02] MEDS: LIDOCAINE 5% TOPICAL PATCH TP SCH (17:09)
[2023-12-02] MEDS: LIDOCAINE PATCH REMOVAL MC SCH (21:23)
[2023-12-02] MEDS: ATORVASTATIN CA 10 MG TABLET (FP) PO SCH (21:23)
[2023-12-02] MEDS ORDERED: PATIENT'S OWN MEDICATION (NON-FORMULARY) (Pravastatin Sodium 20 MG Tablet) PO SCH (22:00)
[2023-12-03 09:35] LABS: CALCIUM 9.7 mg/dl (8.5-10.1); CREATININE 1.2 mg/dl (0.6-1.3); POTASSIUM 4.4 mmol/L (3.5-5.1)
[2023-12-03] MEDS: ENOXAPARIN NA (PORCINE) 40 MG/0.4 ML DISP.SYRIN SQ SCH (09:41)
[2023-12-03] MEDS: ASPIRIN 81 MG CHEWABLE TABLETS PO SCH (09:41)
[2023-12-03 12:38] LABS: HEMATOCRIT 45.7 % (35.4-49); HEMOGLOBIN 15.1 GM/dL (11.7-16.9); MCH 30.7 pg (25.7-33.7); MEAN CELL VOLUME 93.3 fl (80-96); MEAN PLT VOLUME 7.8 fl (7.5-11.1); PLATELET COUNT 164 10^3/uL (134-434); RDW 14.6 % (11.9-15.9); WHITE BLOOD COUNT 22.2 K/mm3 (4.0-10.0)
[2023-12-03 13:16] LABS: ANISOCYTOSIS 1+; MACROCYTOSIS 0
[2023-12-04 08:11] LABS: HEMATOCRIT 49.5 % (35.4-49); HEMOGLOBIN 15.7 G/dL (11.7-16.9); MCH 30.3 pg (25.7-33.7); MCHC 31.7 g/dl (32.0-35.9); MEAN CELL VOLUME 95.3 fl (80-96); MEAN PLT VOLUME 8.3 fl (7.5-11.1); PLATELET COUNT 151.2 10^3/uL (134-434); RBC 5.19 10^6/uL (4.00-5.60); RDW 14.7 % (11.9-15.9); WHITE BLOOD COUNT 21.3 10^3/uL (4.0-10.8)
[2023-12-04 08:35] LABS: CALCIUM 9.5 mg/dl (8.5-10.1); CREATININE 1.1 mg/dl (0.6-1.3); MAGNESIUM 1.9 mg/dL (1.8-2.4); PHOSPHOROUS 3.3 (2.5-4.9); POTASSIUM 3.8 mmol/L (3.5-5.1)
[2023-12-04 08:41] LABS: PLATELET ESTIMATE ADEQUATE
[2023-12-04] MEDS: ACETAMINOPHEN 500 MG TABLET (FP) PO PRN (09:26)
[2023-12-04 09:31] VITALS: RESP 18
[2023-12-04] MEDS: LACTATED RINGERS SOLUTION 1,000 ML/1,000 ML INFUS.BAG IV SCH (14:51)
[2023-12-05 08:36] LABS: HEMATOCRIT 44.7 % (35.4-49); HEMOGLOBIN 14.3 G/dL (11.7-16.9); MCH 30.6 pg (25.7-33.7); MEAN CELL VOLUME 95.5 fl (80-96); MEAN PLT VOLUME 8.3 fl (7.5-11.1); RBC 4.68 10^6/uL (4.00-5.60); RDW 14.2 % (11.9-15.9); WHITE BLOOD COUNT 19.7 10^3/uL (4.0-10.8)
[2023-12-05 09:14] LABS: CALCIUM 9.3 mg/dl (8.5-10.1); CREATININE 1.1 mg/dl (0.6-1.3); MAGNESIUM 1.9 mg/dL (1.8-2.4); PHOSPHOROUS 3.2 (2.5-4.9); POTASSIUM 3.7 mmol/L (3.5-5.1)
[2023-12-05 14:14] VITALS: BP 142/67; PULSE 67; TEMP 98.2
== END 2023-12-05 15:43 | disposition home or self-care (01) | DRG 300 ==
LOC: FER 16:29 → FM/S 20:37
PROVIDERS: ADMIT Internal Medicine; ATTEND Internal Medicine
DX: I77.1 Stricture of artery (principal); I45.2 Bifascicular block; R53.1 Weakness; I10 Essential (primary) hypertension; E78.5 Hyperlipidemia, unspecified; I71.40 Abdominal aortic aneurysm, without rupture, unspecified; Z85.6 Personal history of leukemia
CPT/HCPCS: 0241U-QW; 36415; 70450-TC; 70498-TC; 70551-TC; 71045-TC-FY; 74177-TC; 80048; 80053; 81003; 81015; 83735; 84100; 84484; 85025; 85027; 87086; 93005; 93306-TC; 93880-TC; 97116-GP; 97161-GP; 99285-25; Q9967